=== PATIENT | female | born 2000 | race Caucasian/White ===

== ENCOUNTER 2023-04-01 17:57 | Emergency (ER) | payer BC ==
--- NOTE | 2023-04-01 18:04 | ED ---
Abdominal Pain HPI - General Source: patient Mode of arrival: ambulatory Limitations: no limitations <Gayle Lujan - Last Filed: 04/01/23 18:03> - General Source: patient, RN notes reviewed, old records reviewed <Blake Mac - Last Filed: 04/01/23 22:00> - General Stated Complaint: SIDE PAIN-WORSENING Time Seen by Provider: 04/01/23 18:03 - History of Present Illness Initial Comments: 22-year-old female presenting with chief complaint of abdominal pain. Located i n the right upper quadrant admits to nausea. (Gayle Lujan) Patient is a 22-year-old female who presents emergency Department complaining of right upper quadrant abdominal pain. This is been ongoing for a few days but worse the last 24-48 hours. Was seen by her PCP earlier today where they did an ultrasound and blood work that she does not know the results. Was told by her PCP to come the emergency department if the pain got worse. States the pain got worse this afternoon which is why she is here for further evaluation. Endorses nausea but no emesis. Endorses a history of PCOS. Patient is on Depo contraception medications. Denies any constipation or diarrhea. Denies any vaginal discharge or bleeding. Denies any urinary complaints. No history of intra-abdominal surgeries. He is concerned it is her gallbladder. Presents for further evaluation at this time. No known palliative or provocative factors. Initially seen as a quick note. I evaluated the patient and she was placed in a room. (Blake Mac) - Related Data Previous Rx's Medication Instructions Recorded Famotidine [Pepcid] 20 mg PO DAILY 14 Days #14 tablet 04/01/23 Ondansetron Odt [Zofran Odt] 4 mg PO Q8HR PRN 3 Days #9 tab 04/01/23 Allergies Allergy/AdvReac Type Severity Reaction Status Date / Time oseltamivir [From Tamiflu] AdvReac Unknown Nausea & Verified 04/01/23 18:03 Vomiting Review of Systems ROS Other: All systems not noted in ROS Statement are negative. <Gayle Lujan - Last Filed: 04/01/23 18:03> ROS Other: All systems not noted in ROS Statement are negative. <Blake Mac - Last Filed: 04/01/23 22:00> ROS Statement: Those systems with pertinent positive or pertinent negative responses have been documented in the HPI. Review of Systems: CONST: Denies fever EYES: Denies blurry vision ENT: Denies nasal congestion C/V: Denies Chest pain RESP: Denies shortness of breath GI: Endorses abdominal pain : Denies dysuria SKIN: Denies rash. MSK: Denies joint pain. NEURO: Denies headache (Blake Mac) General Exam <Gayle Lujan - Last Filed: 04/01/23 18:03> <Blake Mac - Last Filed: 04/01/23 22:00> - General Exam Comments Initial Comments: Visual Physical Exam Vital signs reviewed General: Well-appearing, nontoxic, no acute distress. Head: Normocephalic, atraumatic Eyes: PERRLA, EOMI ENT: Airway patent Chest: Nonlabored breathing Skin: No visual rash, normal skin tone Neuro: Alert and oriented 3 Musculoskeletal: No gross abnormalities (Gayle Lujan) General: Appears in no acute distress. HEAD: Normal with no signs of head trauma. EYES: PERRLA, EOMI, conjunctiva normal, no discharge. ENT: Hearing grossly intact, normal oropharynx. RESPIRATORY: Clear breath sounds bilaterally. No wheezes, rales, or rhonchi. C/V: Regular rate and rhythm. S1 and S2 auscultated, no edema, peripheral pulses 2+ and intact throughout ABD: Abdomen is soft, nondistended. Tender to palpation in the right upper quadrant. No guarding. No rebound tenderness. No peritoneal signs. EXT: Normal range of motion, no obvious deformity SKIN: No rashes or lesions observed on exposed skin. NEURO: Alert and oriented x 4. (Blake Mac) Course Vital Signs 04/01/23 04/01/23 04/01/23 18:04 20:00 21:01 Temperature 98.4 F Pulse Rate 115 H 93 92 Respiratory 17 16 18 Rate Blood Pressure 133/85 118/99 118/77 O2 Sat by Pulse 97 96 98 Oximetry 04/01/23 21:47 Temperature Pulse Rate 62 Respiratory 16 Rate Blood Pressure 123/72 O2 Sat by Pulse 99 Oximetry Medical Decision Making - Lab Data Result diagrams: 04/01/23 20:05 04/01/23 20:05 <Blake Mac - Last Filed: 04/01/23 22:00> - Medical Decision Making Was pt. sent in by a medical professional or institution (, GRACIE, CHRONIC SPECIALIST, urgent care, hospital, or intermediate...) When possible be specific @ -No Did you speak to anyone other than the patient for history (EMS, parent, family, police, friend...)? What history was obtained from this source @ -No Did you review nursing and triage notes (agree or disagree)? Why? @ -I reviewed and agree with nursing and triage notes Were old charts reviewed (outside hosp., previous admission, EMS record, old EKG, old radiological studies, urgent care reports/EKG's, intermediate records)? Report findings @ -No old charts were reviewed Differential Diagnosis (chest pain, altered mental status, abdominal pain women, abdominal pain men, vaginal bleeding, weakness, fever, dyspnea, syncope, headache, dizziness, GI bleed, back pain, seizure, CVA, palpatations, mental health, musculoskeletal)? @ -Differential Abdominal Pain Women: Appendicitis, Cholecystitis, diverticulosis, ischemic bowel, pancreatitis, hepatitis, UTI, gastroenteritis, AAA, incarcerated hernia, bowel obstruction, constipation, inflammatory bowel, hepatitis, peptic ulcer disease, splenic infarction, perforated viscus, vulvitis, ovarian torsion, PID, kidney stone, placenta abruption, this is not meant to be an all-inclusive list EKG interpreted by me (3pts min.). @ -None done X-rays interpreted by me (1pt min.). @ -None done CT interpreted by me (1pt min.). @ -None done U/S interpreted by me (1pt. min.). @ -Ultrasound gallbladder reveals no obvious cholecystitis but she does have uncomplicated cholelithiasis What testing was considered but not performed or refused? (CT, X-rays, U/S, labs)? Why? @ -None What meds were considered but not given or refused? Why? @ -None Did you discuss the management of the patient with other professionals (professionals i.e. GRACIE López, CHRONIC SPECIALIST, lab, RT, psych nurse, adoption social worker, camera person, teacher, founder and chief executive officer, immigration case worker)? Give summary @ -No Was smoking cessation discussed for >3mins.? @ -No Was critical care preformed (if so, how long)? @ -No Were there social determinants of health that impacted care today? How? (Homelessness, low income, unemployed, alcoholism, drug addiction, transportation, low edu. Level, literacy, decrease access to med. care, snf, rehab)? @ -No Was there de-escalation of care discussed even if they declined (Discuss DNR or withdrawal of care, Hospice)? DNR status @ -No What co-morbidities impacted this encounter? (DM, HTN, Smoking, COPD, CAD, Cancer, CVA, ARF, Chemo, Hep., AIDS, mental health diagnosis, sleep apnea, morbid obesity)? @ -None Was patient admitted / discharged? Hospital course, mention meds given and route, prescriptions, significant lab abnormalities, going to OR and other pertinent info. @ -Based on the patient's presentation and physical exam, I did recommend that we obtain abdominal laboratory studies as well as a right upper quadrant ultrasound to evaluate gallbladder. Patient was in agreement this plan. She'll be symptomatically treated with IV fluids, Zofran, Toradol, Maalox, Pepcid. Patient was in agreement this plan. Ultrasound reveals uncomplicated cholelithiasis. Patient has a mild leukocytosis of 11.8 which is likely reactive. Hepatobiliary labs within normal limits. Lactic acid within normal limits. Urine still pending at this time however she has no symptoms. I discussed results of the patient. Appear she has biliary colic. We discussed her workup. She'll be discharged home with follow-up with PCP. Strict return precautions discussed. Patient was in agreement this plan. I will provide the patient with a prescription for ODT Zofran, famotidine. I instructed the patient to follow up with their PCP in the next 1-3 days. I provided contact information for follow up with general surgery. I explained that the patient should return to the emergency department if they experience any worsening symptoms. Strict return precautions were discussed with the patient. The patient expressed understanding of these instructions. I answered all questions that the patient had. The patient was discharged home in good condition with their prescriptions and follow up information. Undiagnosed new problem with uncertain prognosis? @ -No Drug Therapy requiring intensive monitoring for toxicity (Heparin, Nitro, Insulin, Cardizem)? @ -No Were any procedures done? @ -No Diagnosis/symptom? @ -Biliary colic Acute, or Chronic, or Acute on Chronic? @ -Acute Uncomplicated (without systemic symptoms) or Complicated (systemic symptoms)? @ -Uncomplicated Side effects of treatment? @ -No Exacerbation, Progression, or Severe Exacerbation? @ -No Poses a threat to life or bodily function? How? (Chest pain, [place], [place], pneumonia, PE, COPD, DKA, ARF, appy, cholecystitis, CVA, Diverticulitis, Homicidal, Suicidal, threat to staff... and all critical care pts) @ -No (Blake Mac) - Lab Data Lab Results 04/01/23 04/01/23 04/01/23 Range/Units 20:05 20:05 20:21 WBC 11.8 H (3.8-10.6) k/uL RBC 5.21 (3.80-5.40) m/uL Hgb 15.5 (11.4-16.0) gm/dL Hct 46.4 H (34.0-46.0) % MCV 89.1 (80.0-100.0) fL MCH 29.8 (25.0-35.0) pg MCHC 33.4 (31.0-37.0) g/dL RDW 12.4 (11.5-15.5) % Plt Count 430 (150-450) k/uL MPV 7.7 Neutrophils % 72 % Lymphocytes % 20 % Monocytes % 4 % Eosinophils % 2 % Basophils % 0 % Neutrophils # 8.5 H (1.3-7.7) k/uL Lymphocytes # 2.4 (1.0-4.8) k/uL Monocytes # 0.5 (0-1.0) k/uL Eosinophils # 0.2 (0-0.7) k/uL Basophils # 0.0 (0-0.2) k/uL Sodium 139 (137-145) mmol/L Potassium 4.0 (3.5-5.1) mmol/L Chloride 105 (98-107) mmol/L Carbon Dioxide 24 (22-30) mmol/L Anion Gap 10 mmol/L BUN 9 (7-17) mg/dL Creatinine 0.64 (0.52-1.04) mg/dL Est GFR (CKD-EPI)AfAm >90 (>60 ml/min/1.73 sqM) Est GFR (CKD-EPI)NonAf >90 (>60 ml/min/1.73 sqM) Glucose 86 (74-99) mg/dL Plasma Lactic Acid [place] 0.7 (0.7-2.0) mmol/L Calcium 9.5 (8.4-10.2) mg/dL Total Bilirubin 0.4 (0.2-1.3) mg/dL AST 26 (14-36) U/L ALT 30 (4-34) U/L Alkaline Phosphatase 95 (38-126) U/L Total Protein 8.1 (6.3-8.2) g/dL Albumin 4.6 (3.5-5.0) g/dL Amylase 48 (30-110) U/L Lipase 119 (23-300) U/L Disposition <Gayle Lujan - Last Filed: 04/01/23 18:03> Is patient prescribed a controlled substance at d/c from ED?: No Time of Disposition: 21:19 <Blake Mac - Last Filed: 04/01/23 22:00> Clinical Impression: Biliary colic Disposition: HOME SELF-CARE Condition: Good Instructions (If sedation given, give patient instructions): Biliary Colic (ED), Abdominal Pain (ED) Prescriptions: Famotidine [Pepcid] 20 mg PO DAILY 14 Days #14 tablet Ondansetron Odt [Zofran Odt] 4 mg PO Q8HR PRN 3 Days #9 tab PRN Reason: Nausea Referrals: Alex Adorno MD [Primary Care Provider] - 1-2 days Gualberto Garner MD [Medical Doctor] - 1-2 days
[2023-04-01 18:08] VITALS: TEMP 98.4
[2023-04-01 20:21] LABS: Basophils % (A) 0 %; Eosinophils # (A) 0.2 k/uL (0-0.7); Eosinophils % (A) 2 %; HCT 46.4 % (34.0-46.0); HGB 15.5 gm/dL (11.4-16.0); Lymphocytes # (A) 2.4 k/uL (1.0-4.8); Lymphocytes % (A) 20 %; MCH 29.8 pg (25.0-35.0); MCHC 33.4 g/dL (31.0-37.0); MCV 89.1 fL (80.0-100.0); Mean Platelet Volume 7.7; Monocytes # (A) 0.5 k/uL (0-1.0); Monocytes % (A) 4 %; Neutrophils # (A) 8.5 k/uL (1.3-7.7); Neutrophils % (A) 72 %; Platelet Count 430 k/uL (150-450); RBC 5.21 m/uL (3.80-5.40); RDW 12.4 % (11.5-15.5); WBC 11.8 k/uL (3.8-10.6)
[2023-04-01 20:29] LABS: ALT 30 U/L (4-34); AST 26 U/L (14-36); African American GFR (CKD) >90 (>60 ml/min/1.73 sqM); Albumin 4.6 g/dL (3.5-5.0); Alkaline Phosphatase 95 U/L (38-126); Amylase 48 U/L (30-110); Anion Gap 10 mmol/L; Blood Urea Nitrogen 9 mg/dL (7-17); Calcium 9.5 mg/dL (8.4-10.2); Carbon Dioxide 24 mmol/L (22-30); Chloride 105 mmol/L (98-107); Glucose 86 mg/dL (74-99); Lipase 119 U/L (23-300); Non-African American GFR(CKD) >90 (>60 ml/min/1.73 sqM); Sodium 139 mmol/L (137-145); Total Bilirubin 0.4 mg/dL (0.2-1.3); Total Protein 8.1 g/dL (6.3-8.2)
--- NOTE | 2023-04-01 20:29 | US ---
EXAMINATION TYPE: US abdomen limited DATE OF EXAM: 04/01/2023 COMPARISON: NONE CLINICAL INDICATION: Female, 22 years old with history of RUQ pain; RUQ pain, nausea TECHNIQUE: Multiple sonographic images of the right upper quadrant are obtained. FINDINGS: EXAM MEASUREMENTS: Liver Length: 13.2 cm Gallbladder Wall: 0.3 cm CBD: 0.4 cm Right Kidney: 11.6 x 5.0 x 4.9 cm ESTATE ADMINISTRATOR NOTES:*Limitations due to large amount of overlying bowel gas Pancreas: Obscured by bowel gas Liver: best visualized intercostally, appears wnl Gallbladder: Multiple stones layering dependently with posterior acoustic shadowing. Evidence for sonographic Palacios's sign: no CBD: limited evaluation, appears wnl Right Kidney: no evidence of hydronephrosis IMPRESSION: Cholelithiasis otherwise no acute process.
[2023-04-01] MEDS ORDERED: MAG HYDROX/AL HYDROX/SIMETH 30 ML, HYOSCYAMINE ELIXIR 10 ML, LIDOCAINE 2% GLYDO JELLY 1... PO STA ×3 (20:39)
[2023-04-01] MEDS ORDERED: SODIUM CHLORIDE 0.9% 1,000 ML IV STA (20:39)
[2023-04-01] MEDS ORDERED: KETOROLAC 15 MG/ML 1 ML VIAL IVP STA (20:39)
[2023-04-01] MEDS ORDERED: FAMOTIDINE 20 MG/2 ML VIAL IV STA (20:39)
[2023-04-01] MEDS ORDERED: ONDANSETRON 4 MG/2 ML VIAL IVP STA (20:39)
[2023-04-01 21:48] VITALS: BP 123/72; PULSE 62; RESP 16
== END 2023-04-01 21:50 | disposition home or self-care (01) ==
LOC: EC 17:57
DX: K80.70 Calculus of gallbladder and bile duct without cholecystitis without obstruction (principal); Z88.3 Allergy status to other anti-infective agents
CPT/HCPCS: 99284; 96374; 96375 ×2; 96361; 36415; 80053; 82150; 83605; 83690; 85025; 76705; J2405; J3490; J1885

== ENCOUNTER 2023-05-18 04:16 | Emergency (ER) | payer BC ==
[2023-05-18 04:30] VITALS: TEMP 98.9
[2023-05-18] MEDS ORDERED: ONDANSETRON 4 MG/2 ML VIAL IVP STA (04:33)
[2023-05-18] MEDS ORDERED: PANTOPRAZOLE 40 MG/10 ML VIAL IVP STA (04:33)
[2023-05-18] MEDS ORDERED: SODIUM CHLORIDE 0.9% 1,000 ML IV STA (04:33)
[2023-05-18] MEDS ORDERED: KETOROLAC 15 MG/ML 1 ML VIAL IVP STA (04:33)
--- NOTE | 2023-05-18 04:34 | ED ---
Abdominal Pain HPI - General Source: patient, RN notes reviewed, old records reviewed Mode of arrival: ambulatory Limitations: no limitations - History of Present Illness MD Complaint: abdominal pain -: hour(s) Location: diffuse, epigastric, suprapubic Radiation: epigastric, suprapubic Migration to: no migration Severity: moderate Severity scale (1-10): 4 Quality: stabbing Consistency: constant Improves With: nothing Worsens With: nothing Associated Symptoms: nausea, vomiting Treatments Prior to Arrival: other (0) <Enrique Estevez - Last Filed: 05/18/23 05:44> <Yury Gandhi - Last Filed: 05/18/23 08:29> - General Chief Complaint: Abdominal Pain Stated Complaint: Abd pain Time Seen by Provider: 05/18/23 04:32 - History of Present Illness Initial Comments: This is a 22-year-old female to the emergency department for evaluation. Patient presents today for evaluation regards to abdominal pain severe epigastric and right upper quadrant abdominal pain which feels a prior gallbladder evaluations reveal what attacks. Patient's been seen in the ER for prior evaluation as well as by her primary care in regards to gallbladder attacks with symptoms resolving she has no history of gallstones. She has have active nausea vomiting and triceps prior to arrival. (Enrique Estevez) - Related Data Previous Rx's Medication Instructions Recorded Famotidine [Pepcid] 20 mg PO DAILY 14 Days #14 tablet 04/01/23 Ondansetron Odt [Zofran Odt] 4 mg PO Q8HR PRN 3 Days #9 tab 04/01/23 Allergies Allergy/AdvReac Type Severity Reaction Status Date / Time oseltamivir [From Tamiflu] AdvReac Unknown Nausea & Verified 05/18/23 04:20 Vomiting Review of Systems ROS Other: All systems not noted in ROS Statement are negative. <Enrique Estevez - Last Filed: 05/18/23 05:44> ROS Other: All systems not noted in ROS Statement are negative. <Yury Gandhi - Last Filed: 05/18/23 08:29> ROS Statement: Those systems with pertinent positive or pertinent negative responses have been documented in the HPI. Past Medical History Additional Past Medical History / Comment(s): PCOS History of Any Multi-Drug Resistant Organisms: None Reported Past Surgical History: Tonsillectomy Past Psychological History: Anxiety, Depression Smoking Status: Never smoker Past Alcohol Use History: Occasional Past Drug Use History: None Reported <Enrique Estevez - Last Filed: 05/18/23 05:44> General Exam Limitations: no limitations General appearance: alert, in no apparent distress Head exam: Present: atraumatic, normocephalic, normal inspection Eye exam: Present: normal appearance, PERRL, EOMI. Absent: scleral icterus, conjunctival injection, periorbital swelling ENT exam: Present: normal exam, mucous membranes moist Neck exam: Present: normal inspection. Absent: tenderness, meningismus, lymphadenopathy Respiratory exam: Present: normal lung sounds bilaterally. Absent: respiratory distress, wheezes, rales, rhonchi, stridor Cardiovascular Exam: Present: regular rate, normal rhythm, normal heart sounds. Absent: systolic murmur, diastolic murmur, rubs, gallop, clicks GI/Abdominal exam: Present: soft, tenderness, normal bowel sounds. Absent: distended, guarding, rebound, rigid Extremities exam: Present: normal inspection, full ROM, normal capillary refill. Absent: tenderness, pedal edema, joint swelling, calf tenderness Back exam: Present: normal inspection Neurological exam: Present: alert, oriented X3, CN II-XII intact Psychiatric exam: Present: normal affect, normal mood Skin exam: Present: warm, dry, intact, normal color. Absent: rash <Enrique Estevez - Last Filed: 05/18/23 05:44> Course <Enrique Estevez - Last Filed: 05/18/23 05:44> Vital Signs 05/18/23 05/18/23 04:20 07:19 Temperature 98.9 F Pulse Rate 106 H 86 Respiratory 20 18 Rate Blood Pressure 133/81 117/77 O2 Sat by Pulse 99 97 Oximetry - Reevaluation(s) Reevaluation #1: 05/18/23 04:33 Records reviewed (Enrique Estevez) Reevaluation #4: 05/18/23 04:34 Was pt. sent in by a medical professional or institution (, PA, CLIENT APPLICATION SUPPORT ENGINEER, urgent care, hospital, or care home...) When possible be specific @ -no Did you speak to anyone other than the patient for history (EMS, parent, family, police, friend...)? What history was obtained from this source @ -no Did you review nursing and triage notes (agree or disagree)? Why? @ -agree Are old charts reviewed (outside hosp., previous admission, EMS record, old EKG, old radiological studies, urgent care reports/EKG's, care home records)? Report findings @ -yes Differential Diagnosis (chest pain, altered mental status, abdominal pain women, abdominal pain men, vaginal bleeding, weakness, fever, dyspnea, syncope, he adache, dizziness, GI bleed, back pain, seizure, CVA, palpatations, mental health, musculoskeletal)? @ -prior EKG interpreted by me (3pts min.). @ -yes X-rays interpreted by me (1pt min.). @ -yes CT interpreted by me (1pt min.). @ -no U/S interpreted by me (1pt. min.). @ -no What testing was considered but not performed or refused? (CT, X-rays, U/S, labs)? Why? @ -none What meds were considered but not given or refused? Why? @ -none Did you discuss the management of the patient with other professionals (professionals i.e. , PA, CLIENT APPLICATION SUPPORT ENGINEER, lab, RT, psych nurse, social work professor, jewelry technician, teacher, upscale security officer, lining caser)? Give summary @ -no Was smoking cessation discussed for >3mins.? @ -no Was critical care preformed (if so, how long)? @ -no Were there social determinants of health that impacted care today? How? (Homelessness, low income, unemployed, alcoholism, drug addiction, t ransportation, low edu. Level, literacy, decrease access to med. care, residential, rehab)? @ -none Was there de-escalation of care discussed even if they declined (Discuss DNR or withdrawal of care, Hospice)? DNR status @ -no What co-morbidities impacted this encounter? (DM, HTN, Smoking, COPD, CAD, [place] cer, CVA, ARF, Chemo, Hep., AIDS, mental health diagnosis, sleep apnea, morbid obesity)? @ -none Was patient admitted / discharged? Hospital course, mention meds given and route, prescriptions, significant lab abnormalities, going to OR and other pertinent info. @ - Undiagnosed new problem with uncertain prognosis? @ -no Drug Therapy requiring intensive monitoring for toxicity (Heparin, Nitro, Insulin, Cardizem)? @ -no Were any procedures done? @ -no Diagnosis/symptom? @ - Acute, or Chronic, or Acute on Chronic? @ -Acute Uncomplicated (without systemic symptoms) or Complicated (systemic symptoms)? @ -Complicated Side effects of treatment? @ -no Exacerbation, Progression, or Severe Exacerbation? @ -exacerbation Poses a threat to life or bodily function? How? (Chest pain, [place], [place], pneumonia, PE, COPD, DKA, ARF, appy, cholecystitis, CVA, Diverticulitis, Homicidal, Suicidal, threat to staff... and all critical care pts) @ -yes (Enrique Estevez) Reevaluation #5: 05/18/23 04:34 Differential Abdominal Pain Women: Appendicitis, Cholecystitis, diverticulosis, ischemic bowel, pancreatitis, hepatitis, UTI, gastroenteritis, AAA, incarcerated hernia, bowel obstruction, constipation, inflammatory bowel, hepatitis, peptic ulcer disease, splenic infarction, perforated viscus, vulvitis, ovarian torsion, PID, kidney stone, placenta abruption, this is not meant to be an all-inclusive list (Enrique Estevez) Medical Decision Making - Lab Data Result diagrams: 05/18/23 04:38 05/18/23 04:38 <Enrique Estevez - Last Filed: 05/18/23 05:44> - Lab Data Result diagrams: 05/18/23 04:38 05/18/23 04:38 <Yury Gandhi - Last Filed: 05/18/23 08:29> - Medical Decision Making Patient care is signed out to me by previous shift physician. Patient is a 22-year-old female presents to the emergency room with nausea vomiting and right upper abdominal pain. Patient allegedly has a history of cholelithiasis. Plan at sign out was to follow-up with ending ultrasound study. Laboratory evaluation obtained. Labs are within acceptable limits. Normal liver enzymes. Patient is afebrile Ultrasound reviewed showing no emergent processes. There is cholelithiasis. Patient evaluated at bedside at 8:28 AM found to be within stable medical condition. Patient is agreeable for discharge is given outpatient referral to general surgery. She is told to avoid fatty foods. Return precautions discussed. (Yury Gandhi) - Lab Data Lab Results 05/18/23 05/18/23 05/18/23 Range/Units 04:38 04:38 04:38 WBC 12.9 H (3.8-10.6) k/uL RBC 5.09 (3.80-5.40) m/uL Hgb 15.3 (11.4-16.0) gm/dL Hct 45.8 (34.0-46.0) % MCV 90.0 (80.0-100.0) fL MCH 30.1 (25.0-35.0) pg MCHC 33.4 (31.0-37.0) g/dL RDW 12.9 (11.5-15.5) % Plt Count 431 (150-450) k/uL MPV 7.9 Neutrophils % 67 % Lymphocytes % 24 % Monocytes % 6 % Eosinophils % 2 % Basophils % 0 % Neutrophils # 8.6 H (1.3-7.7) k/uL Lymphocytes # 3.0 (1.0-4.8) k/uL Monocytes # 0.8 (0-1.0) k/uL Eosinophils # 0.2 (0-0.7) k/uL Basophils # 0.1 (0-0.2) k/uL Sodium 138 (137-145) mmol/L Potassium 4.4 (3.5-5.1) mmol/L Chloride 104 (98-107) mmol/L Carbon Dioxide 20 L (22-30) mmol/L Anion Gap 14 mmol/L BUN 11 (7-17) mg/dL Creatinine 0.63 (0.52-1.04) mg/dL Est GFR (CKD-EPI)AfAm >90 (>60 ml/min/1.73 sqM) Est GFR (CKD-EPI)NonAf >90 (>60 ml/min/1.73 sqM) Glucose 78 (74-99) mg/dL Calcium 9.5 (8.4-10.2) mg/dL Total Bilirubin 0.5 (0.2-1.3) mg/dL AST 40 H (14-36) U/L ALT 33 (4-34) U/L Alkaline Phosphatase 99 (38-126) U/L Total Protein 7.6 (6.3-8.2) g/dL Albumin 4.5 (3.5-5.0) g/dL Amylase 51 (30-110) U/L Lipase 196 (23-300) U/L Urine Color Yellow Urine Appearance Cloudy H (Clear) Urine pH 6.0 (5.0-8.0) Ur Specific [place] 1.025 (1.001-1.035) Urine Protein 1+ H (Negative) Urine Glucose (UA) Negative (Negative) Urine Ketones Negative (Negative) Urine Blood Small H (Negative) Urine Nitrite Negative (Negative) Urine Bilirubin Negative (Negative) Urine Urobilinogen <2.0 (<2.0) mg/dL Ur Leukocyte Esterase Negative (Negative) Urine RBC 14 H (0-5) /hpf Urine WBC 1 (0-5) /hpf Ur Squamous Epith Cells 19 H (0-4) /hpf Urine Bacteria Rare H (None) /hpf Urine Mucus Moderate H (None) /hpf Disposition <Enrique Estevez - Last Filed: 05/18/23 05:44> Is patient prescribed a controlled substance at d/c from ED?: No Time of Disposition: 08:29 <Yury Gandhi - Last Filed: 05/18/23 08:29> Clinical Impression: Symptomatic cholelithiasis Disposition: HOME SELF-CARE Condition: Fair Instructions (If sedation given, give patient instructions): Gallstones (ED) Referrals: Philly Ham MD [STAFF PHYSICIAN] - 1-2 days
[2023-05-18 05:16] LABS: Basophils # (A) 0.1 k/uL (0-0.2); Basophils % (A) 0 %; Eosinophils # (A) 0.2 k/uL (0-0.7); Eosinophils % (A) 2 %; HCT 45.8 % (34.0-46.0); HGB 15.3 gm/dL (11.4-16.0); Lymphocytes % (A) 24 %; MCH 30.1 pg (25.0-35.0); MCHC 33.4 g/dL (31.0-37.0); Mean Platelet Volume 7.9; Monocytes # (A) 0.8 k/uL (0-1.0); Monocytes % (A) 6 %; Neutrophils # (A) 8.6 k/uL (1.3-7.7); Neutrophils % (A) 67 %; Platelet Count 431 k/uL (150-450); RBC 5.09 m/uL (3.80-5.40); RDW 12.9 % (11.5-15.5); WBC 12.9 k/uL (3.8-10.6)
[2023-05-18 05:22] LABS: ALT 33 U/L (4-34); AST 40 U/L (14-36); African American GFR (CKD) >90 (>60 ml/min/1.73 sqM); Albumin 4.5 g/dL (3.5-5.0); Alkaline Phosphatase 99 U/L (38-126); Amylase 51 U/L (30-110); Anion Gap 14 mmol/L; Blood Urea Nitrogen 11 mg/dL (7-17); Calcium 9.5 mg/dL (8.4-10.2); Carbon Dioxide 20 mmol/L (22-30); Chloride 104 mmol/L (98-107); Glucose 78 mg/dL (74-99); Lipase 196 U/L (23-300); Non-African American GFR(CKD) >90 (>60 ml/min/1.73 sqM); Potassium 4.4 mmol/L (3.5-5.1); Sodium 138 mmol/L (137-145); Total Bilirubin 0.5 mg/dL (0.2-1.3); Total Protein 7.6 g/dL (6.3-8.2)
[2023-05-18 06:23] LABS: Appearance,Urine Cloudy (Clear); Bacteria,Urine Rare /hpf; Bilirubin,Urine Negative (Negative); Blood,Urine Small (Negative); Color,Urine Yellow; Glucose,Urine (UA) Negative (Negative); Ketones,Urine Negative (Negative); Leukocyte Esterase,Urine Negative (Negative); Mucus,Urine Moderate /hpf; Nitrite,Urine Negative (Negative); Protein,Urine 1+ (Negative); RBC,Urine 14 /hpf (0-5); Specific Gravity,Urine 1.025 (1.001-1.035); Squamous Epithelial Cell,Urine 19 /hpf (0-4); Urobilinogen,Urine <2.0 mg/dL (<2.0); WBC,Urine 1 /hpf (0-5)
[2023-05-18] MEDS ORDERED: HYDROmorphone 0.5 MG/0.5 ML SYRINGE IVP STA (06:48)
--- NOTE | 2023-05-18 08:18 | US ---
EXAMINATION TYPE: US gallbladder DATE OF EXAM: 05/18/2023 COMPARISON: 04/01/2023 CLINICAL INDICATION: Female, 22 years old with history of pain; Hx of gall stones. Pain and nausea. TECHNIQUE: Multiple sonographic images of the right upper quadrant are obtained. FINDINGS: EXAM MEASUREMENTS: Liver Length: 15.8 cm Gallbladder Wall: 0.2 cm CBD: 0.6 cm Right Kidney: 11.2 x 5.0 x 4.9 cm Pancreas: Head and tail obscured by overlying bowel gas Liver: wnl Gallbladder: Multiple echogenic foci seen with shadowing. No wall thickening seen. Evidence for sonographic Palacios's sign: neg CBD: wnl Right Kidney: No hydronephrosis or masses seen IMPRESSION: Cholelithiasis. CBD at the upper limits of normal measuring 6 mm should be correlated clinically. No diagnostic evidence of cholecystitis.
[2023-05-18 08:59] VITALS: BP 116/75; PULSE 72; RESP 20
== END 2023-05-18 08:47 | disposition home or self-care (01) ==
LOC: EC 04:16
DX: K80.20 Calculus of gallbladder without cholecystitis without obstruction (principal); Z86.59 Personal history of other mental and behavioral disorders; Z88.8 Allergy status to other drugs, medicaments and biological substances
CPT/HCPCS: 36415; 80053; 82150; 83690; 85025; 81001; 76705; 99285; 96374; 96375 ×3; 96361; J2405; J1885; C9113; J1170